=== PATIENT | female | born 1980 | race Caucasian/White ===

== ENCOUNTER → 2019-05-16 | Outpatient (CLI) | payer OTHER ==
--- NOTE | 2019-05-16 14:48 | KCIC ---
MR of the right knee HISTORY: Right knee pain in recent weeks, especially laterally. TECHNIQUE: Routine multiplanar sequences are obtained. FINDINGS: No evidence of medial meniscal tear. No evidence of lateral meniscal tear. The anterior and posterior cruciate ligaments are intact. Medial collateral ligament is intact. Iliotibial band unremarkable. Fibular collateral ligament, biceps femoris tendon and popliteus tendon are intact. Extensor mechanism is intact. Small joint effusion. Mild chondromalacia of the patella with chondral irregularity. Subchondral marrow edema of the patella. Mild chondromalacia of the lateral femoral condyle with minimal subchondral marrow edema. No evidence of aggressive bone destruction. There is patchy marrow heterogeneity at the proximal tibia probably represents areas of the hematopoietic bone marrow. No significant marrow pathology is seen. No significant Hickman's cyst. IMPRESSION: 1. No meniscal tear or internal derangement. 2. Mild chondromalacia of the patella. Subchondral marrow edema is somewhat out of proportion, could be degenerative or superimposed marrow contusion. 3. Mild chondromalacia at the lateral femoral condyle with mild subchondral reactive change. Electronically signed by: Mando Dietrich MD (05/16/2019 2:45 PM) [facility]
== END | disposition home or self-care (01) ==
LOC: KCIC MRI 13:55
DX: M22.41 Chondromalacia patellae, right knee (principal); M25.461 Effusion, right knee; R60.0 Localized edema
CPT/HCPCS: 73721

== ENCOUNTER → 2019-10-14 | Day surgery (SDC) | payer OTHER, MEDICAID ==
[~2019-10-14] MED LIST: DULO30CA2 PO; HYDROmorphone 2 MG/ML VIAL IV PRN; IV RINGERS,LACTATED 1000ML 1,000 ML IV SCH; LAMO150T3 PO; LIDOCAINE 2% PF 5 ML VIAL. ONE; LURA80TA PO; MILN100T PO; MORPHINE SULFATE 2 MG/ML VIAL. IV PRN; NORE1PAT7 TD; ONDANSETRON PF 4 MG/2 ML VIAL. IV PRN; PROCHLORPERAZINE 10 MG/2 ML VIAL. IV PRN; PROPOFOL 40 ML IV ONE; fentaNYL PF VIAL 100 MCG/2 ML VIAL IV PRN
[2019-10-14 11:03] VITALS: BP 143/87
--- NOTE | 2019-10-17 14:07 | PATHOLOGY ---
[facility] Accession Number: [id number] . 01 Material submitted: . PART A: colon - RIGHT COLON BX. Modifiers: right PART B: colon - TRANSVERSE COLON BX. Modifiers: transverse PART C: colon - LEFT COLON BX. Modifiers: left . 01 Clinical history: . Ulcerative colitis . 02 Diagnosis: A. Colonic mucosa, right colon biopsies: - Segments of colonic mucosa showing no evidence of active chronic destructive colitis or dysplasia. . B. Colonic mucosa, transverse colon biopsies: - Segments of colonic mucosa showing no evidence of active chronic destructive colitis or dysplasia. . C. Colonic mucosa, left colon biopsies: - Segments of colonic mucosa showing no evidence of active chronic destructive colitis or dysplasia. . (JPM:josé; 10/17/2019) [facility] 10/17/2019 1350 Local . 02 Comment: Sections of the right colon, transverse colon, and left colon biopsies appear similar and reveal segments of colonic mucosa which histologically appear normal and contain a few scattered lymphoid aggregates. There is no evidence of an active chronic destructive colitis. There is no dysplasia or evidence of malignancy. (JPM:josé; 10/17/2019) . 02 Electronically signed: . Dejon Macias MD, Pathologist NPI- [id number] . 01 Gross description: . A. Received in formalin labeled "Cristela Coats, right colon BX, rule out ulcerative colitis," are multiple segments of cavazos soft tissue measuring 2.0 x 0.6 x 0.1 cm in aggregate dimensions. The specimen is filtered and entirely submitted in cassette A1. . B. Received in formalin labeled "Cristhianborn, Cristela, transverse colon BX, rule out ulcerative colitis," are multiple segments of cavazos soft tissue measuring 1.5 x 0.7 x 0.1 cm in aggregate dimensions. The specimen is filtered and entirely submitted in cassette B1. . C. Received in formalin labeled "Cristela Coats, left colon BX, rule out ulcerative colitis," are multiple segments of cavazos soft tissue measuring 1.5 x 0.8 x 0.1 cm in aggregate dimensions. The specimen is filtered and entirely submitted in cassette C1. (TSD; 10/14/2019) TOB/TOB 10/14/2019 1825 Local . 02 Pathologist provided ICD-10: Z87.19 . 02 CPT . 008985, 222631, 291630 Specimen Comment: A courtesy copy of this report has been sent to [phone], [phone] Specimen Comment: [id number] Specimen Comment: Report sent to / DR WHEATLEY Performed at: 01 [facility] [address], [place] [id number] MD Onesimo Omer MD Phone: [phone] Performed at: 02 [facility] [address] [place], [place] [id number] MD Dejon Macias MD Phone: [phone]
== END ==
LOC: ENDOS 09:04
PROVIDERS: ATTEND Internal Medicine Gastroenterology
DX: K51.90 Ulcerative colitis, unspecified, without complications (principal); K64.0 First degree hemorrhoids; F41.9 Anxiety disorder, unspecified; F32.9 Major depressive disorder, single episode, unspecified; K21.9 Gastro-esophageal reflux disease without esophagitis; J45.909 Unspecified asthma, uncomplicated; M79.7 Fibromyalgia; E11.9 Type 2 diabetes mellitus without complications; F15.90 Other stimulant use, unspecified, uncomplicated; Z98.84 Bariatric surgery status; Z88.8 Allergy status to other drugs, medicaments and biological substances; Z91.040 Latex allergy status; Z72.89 Other problems related to lifestyle; Z87.891 Personal history of nicotine dependence; Z79.84 Long term (current) use of oral hypoglycemic drugs
CPT/HCPCS: 45380; 81025; 88305; J2001; J2704

== ENCOUNTER → 2020-06-27 | Outpatient (CLI) | payer OTHER ==
[2019-10-14 11:03] VITALS: BP 143/87
[~2020-06-27] MED LIST changes: -HYDROmorphone 2 MG/ML VIAL IV PRN; -IV RINGERS,LACTATED 1000ML 1,000 ML IV SCH; -LIDOCAINE 2% PF 5 ML VIAL. ONE; -MORPHINE SULFATE 2 MG/ML VIAL. IV PRN; -ONDANSETRON PF 4 MG/2 ML VIAL. IV PRN; -PROCHLORPERAZINE 10 MG/2 ML VIAL. IV PRN; -PROPOFOL 40 ML IV ONE; -fentaNYL PF VIAL 100 MCG/2 ML VIAL IV PRN
[2020-06-27 12:23] LABS: BASO % 1 % (0-3); EOS # 0.1 x10^3/uL (0.0-0.7); EOS % 1 % (0-3); HEMATOCRIT 38.4 % (36.0-47.0); LYMPH # 0.9 x10^3/uL (1.0-4.8); LYMPH % 13 % (24-48); MEAN CORPUSCULAR HEMOGLOBIN 30 pg (25-35); MEAN CORPUSCULAR HGB CONC 34 g/dL (31-37); MEAN CORPUSCULAR VOLUME 88 fL (79-100); MONO # 0.6 x10^3/uL (0.0-1.1); MONO % 8 % (0-9); NEUT # 5.6 x10^3/uL (1.8-7.7); NEUT % 77 % (31-73); PLATELET COUNT 377 x10^3/uL (140-400); RED CELL DISTRIBUTION WIDTH 16.1 % (11.5-14.5); WHITE BLOOD COUNT 7.3 x10^3/uL (4.0-11.0)
== END ==
LOC: ONCLAB 12:10
PROVIDERS: ATTEND Internal Medicine Hematology & Oncology
DX: D50.8 Other iron deficiency anemias (principal)
CPT/HCPCS: 36415; 82728; 83540; 83550; 85025

== ENCOUNTER → 2021-02-05 | Outpatient (CLI) | payer OTHER, MEDICAID ==
[2019-10-14 11:03] VITALS: BP 143/87
--- NOTE | 2021-02-05 11:50 | EEG ---
DATE OF SERVICE: 02/05/2021 OBJECTIVE: The patient is a 40-year-old female with memory loss and episodes of confusion. DESCRIPTION: This is a digital study. Electrodes are placed according to the international 10-20 system. Bipolar and referential montages are available. Activation procedures typically include hyperventilation and intermittent photic stimulation. INTERPRETATION: The waking background consists of 9-10 Hz, 50-100 microvolt activity, symmetrically distributed over parietooccipital regions and reactive to eye opening. Hyperventilation and intermittent photic stimulation are noncontributory. Stage 2 sleep is achieved with normal electroencephalogram patterns. IMPRESSION: This electroencephalogram with the patient awake and asleep is within normal limits. There is no focal, paroxysmal, or epileptiform activity. Thank you for letting us help with the patient's care. TREE WHARTON MD DR: DINA/hyacinth JOB#: [id number] / [id number] TREE Alba
--- NOTE | 2021-02-05 12:48 | RAD ---
EXAM: Brain MRI without contrast. HISTORY: Short-term memory loss. TECHNIQUE: Multiplanar, multisequence magnetic resonance imaging of the brain was performed without c ontrast. COMPARISON: None. FINDINGS: There is no restricted diffusion to suggest acute or subacute infarction. There is no susce ptibility effect to suggest hemorrhage. There is no mass effect or midline shift. There is no hydroce phalus. No suspicious white matter lesion is seen. The orbits are unremarkable. The paranasal sinuses mastoid air cells are clear. There are normal flow voids within the cerebral vessels. There is no ca lvarial lesion. IMPRESSION: No acute intracranial finding. Electronically signed by: Gisel Ortiz MD (02/05/2021 12:46 PM) [id number]
== END ==
LOC: RT 07:19
PROVIDERS: ATTEND Nurse Practitioner Family
DX: R41.3 Other amnesia (principal); R41.0 Disorientation, unspecified; R06.4 Hyperventilation
CPT/HCPCS: 70551; 95816